=== PATIENT | female | born 1970 | race Caucasian/White ===

== ENCOUNTER 2025-03-21 08:54 | Day surgery (SDC) | payer MEDICARE, MEDICAID ==
[2025-03-21] VITALS (14 sets, daily range): BP systolic 81–114; BP diastolic 39–74; PULSE 49–79; RESP 12–16; TEMP 97.3; O2SAT 96–100
[~2025-03-21] VITALS: Ht 175.3 cm; Wt 68.0 kg
[~2025-03-21 08:54] MED LIST: ACYC-126 PO; CLOB30CR11 TOP; ESTR1TAB28 PO; HYDR-3717 PO; PREVCR VG; PROG100C11 PO; simethicone 40mg/0.6ml oral drops 15ml PO ONE
[2025-03-21] MEDS: ringers solution, lacted 1,000 ML IV SCH (09:50)
[2025-03-21] MEDS ORDERED: fentaNYL/PF 50MCG/1 ML 2ML syringe ONE (11:05)
[2025-03-21] MEDS ORDERED: MIDAZolam 1 MG/ML 5ML VIAL ONE (11:05)
== END 2025-03-21 14:00 | disposition home or self-care (01) ==
LOC: PAS 08:54
PROVIDERS: ATTEND Internal Medicine Gastroenterology
DX: K62.5 Hemorrhage of anus and rectum (principal); K64.8 Other hemorrhoids; G89.29 Other chronic pain; J45.909 Unspecified asthma, uncomplicated; Z88.8 Allergy status to other drugs, medicaments and biological substances; R56.9 Unspecified convulsions; Z87.891 Personal history of nicotine dependence; Z79.899 Other long term (current) drug therapy; Z98.890 Other specified postprocedural states
CPT/HCPCS: 45378; 99152; A4615; A4620; J2250; J3010; J7120; Z7512; Z7610; 99153